=== PATIENT | female | born 1960 | race Caucasian/White ===

== ENCOUNTER 2016-05-17 12:45 | Emergency (ER) | payer MEDICAID ==
[2012-10-13 01:51] VITALS: BMI 20.4
[~2016-05-17 12:45] MED LIST: ATIVAN0.5 MG PO; BAYER CHEWABLE81 MG PO; FLEXERIL10 MG PO; IPRAT-ALBUT 0.5-3 ML NEB; NEURONTIN 300300 MG PO; NICODERM C1 PATCH .3 TD; NORCO 5/325 TAB1 TA1 PO; TRAZODONE HCL150 MG PO; TYLENOL325 MG PO; ULTRAM50 MG PO
[2016-05-17 13:44] LABS: BASOPHILS 0.1 % (0.0-2.0); EOSINOPHILS 0.2 % (0-7); HEMATOCRIT 40.8 % (36.0-48.0); IMMATURE GRANULOCYTES 0.2 % (0-5); LYMPHOCYTES 5.6 % (15-50); MCH 35.4 pg (26.0-34.0); MCHC 34.3 g/dL (31.0-37.0); MONOCYTES 5.4 % (2-11); NEUTROPHILS 88.5 % (40-80); RBC 3.96 10x6/uL (4.00-5.40); RDW 13.2 % (11.5-14.5); WBC 14.4 10x3/uL (4.8-10.8)
[2016-05-17 13:53] LABS: PLATELET COUNT 251 10x3/uL (130-400)
[2016-05-17 14:08] LABS: ALBUMIN 3.4 g/dL (3.4-5.0); ALKALINE PHOSPHATASE 114 U/L (46-116); ALT (SGPT) 22 U/L (10-68); BILIRUBIN - TOTAL 0.31 mg/dL (0.2-1.3); CALC OSMOLALITY 266 mosm/kg (275-300); CALCIUM 9.9 mg/dL (8.5-10.1); CARBON DIOXIDE 30.5 mmol/L (21.0-32.0); CHLORIDE - SERUM 94 mmol/L (98-107); CKMB 7.2 U/L (0.0-3.6); CREATINE KINASE 145 UL (21-215); GLUCOSE 133 mg/dL (74-106); HDL CHOLESTEROL 51 mg/dL (32-96); LDL CHOLESTEROL 93 mg/dL (0-100); LDL-HDL RATIO 1.8 ratio (1.5-3.5); PROTEIN - SERUM 8.4 g/dL (6.4-8.2); SODIUM 133 mmol/L (136-145); TRIGLYCERIDE 50 mg/dL (30-200); UREA NITROGEN 11 mg/dL (7-18); eGFR NON AFRICAN AMERICAN 61 mL/min (90-120)
[2016-05-17 14:11] LABS: POTASSIUM - SERUM 2.7 mmol/L (3.5-5.1); TROPONIN-I < 0.017 ng/mL (0.000-0.060)
[2016-05-17 14:24] LABS: CHOLESTEROL, TOTAL 151 mg/dL (0-200)
== END 2016-05-17 16:21 | disposition left against medical advice (07) ==
LOC: D.ER 12:45
PROVIDERS: Emergency Medicine
DX: R07.9 Chest pain, unspecified (principal); J44.9 Chronic obstructive pulmonary disease, unspecified; I45.4 Nonspecific intraventricular block

== ENCOUNTER 2016-05-18 12:36 | Emergency (ER) | payer MEDICAID ==
[2012-10-13 01:51] VITALS: BMI 20.4
== END 2016-05-18 15:08 | disposition home or self-care (01) ==
LOC: D.ER 12:36
DX: R06.02 Shortness of breath (principal)

== ENCOUNTER 2016-05-18 16:18 | Emergency (ER) | payer MEDICAID | END 2016-05-18 20:28 | disposition home or self-care (01) | LOC: D.ER 16:18 | DX: J18.9 Pneumonia, unspecified organism (principal); E87.6 Hypokalemia; J44.9 Chronic obstructive pulmonary disease, unspecified ==

== ENCOUNTER 2016-08-16 15:45 | Emergency (ER) | payer MEDICAID ==
[2012-10-13 01:51] VITALS: BMI 20.4
== END 2016-08-16 18:29 | disposition home or self-care (01) ==
LOC: D.ER 15:45
DX: I87.2 Venous insufficiency (chronic) (peripheral) (principal); M79.672 Pain in left foot; M79.671 Pain in right foot; J44.9 Chronic obstructive pulmonary disease, unspecified

== ENCOUNTER 2016-11-23 13:17 | Emergency (ER) | payer MEDICAID ==
[2012-10-13 01:51] VITALS: BMI 20.4
[2016-11-23 13:52] LABS: APPEARANCE CLOUDY (CLEAR); BILIRUBIN NEGATIVE (NEGATIVE); COLOR STRAW (YELLOW); GLUCOSE NEGATIVE (NEGATIVE); KETONE NEGATIVE (NEGATIVE); NITRITE POSITIVE (NEGATIVE); PROTEIN TRACE mg/dL (NEGATIVE); UROBILINOGEN NORMAL (NORMAL)
[2016-11-23 13:54] LABS: BACTERIA MANY /hpf (NONE SEEN); EPITHELIAL CELLS 0-5 /hpf (0-5); RED CELLS - URINE 0-5 /hpf (0-5)
[2016-11-23 13:54] LABS: BASOPHILS 0.2 % (0-2); EOSINOPHILS 1.5 % (0-7); HEMATOCRIT 37.4 % (36.0-48.0); HEMOGLOBIN 12.7 g/dL (12-16); IMMATURE GRANULOCYTES 0.1 % (0-5); LYMPHOCYTES 20.5 % (15-50); MCV 105.9 fL (80.0-100.0); MEAN PLATELET VOLUME 9.2 fL (7.4-10.4); MONOCYTES 6.7 % (2-11); PLATELET COUNT 317 10x3/uL (130-400); RBC 3.53 10x6/uL (4.00-5.40); RDW 13.7 % (11.5-14.5); WBC 8.7 10x3/uL (4.8-10.8)
[2016-11-23 14:10] LABS: ALBUMIN 3.8 g/dL (3.4-5.0); ALKALINE PHOSPHATASE 105 U/L (46-116); ALT (SGPT) 25 U/L (10-68); BILIRUBIN - TOTAL 0.37 mg/dL (0.2-1.3); CALC OSMOLALITY 279 mosm/kg (275-300); CALCIUM 9.6 mg/dL (8.5-10.1); CARBON DIOXIDE 29.1 mmol/L (21.0-32.0); CHLORIDE - SERUM 102 mmol/L (98-107); CREATININE - SERUM 0.5 mg/dL (0.6-1.3); GLUCOSE 105 mg/dL (74-106); POTASSIUM - SERUM 3.4 mmol/L (3.5-5.1); SODIUM 141 mmol/L (136-145); UREA NITROGEN 10 mg/dL (7-18); eGFR NON AFRICAN AMERICAN > 90 mL/min (90-120)
[2016-11-23 15:06] LABS: INR 0.92 (0.85-1.17); PROTIME 12.2 SECONDS (11.6-15.0)
[2016-11-23 15:15] LABS: UDS - AMPHET NEGATIVE QUAL (NEGATIVE); UDS - BARB NEGATIVE QUAL (NEGATIVE); UDS - BENZO POSITIVE QUAL (NEGATIVE); UDS - COCAINE NEGATIVE QUAL (NEGATIVE); UDS - OPIATE NEGATIVE QUAL (NEGATIVE); UDS - PCP NEGATIVE QUAL (NEGATIVE); UDS - THC NEGATIVE QUAL (NEGATIVE)
== END 2016-11-23 16:01 | disposition home or self-care (01) ==
LOC: D.ER 13:17
PROVIDERS: Emergency Medicine; Nurse Practitioner Family
DX: R10.32 Left lower quadrant pain (principal); N39.0 Urinary tract infection, site not specified; M25.50 Pain in unspecified joint; G89.4 Chronic pain syndrome; J44.9 Chronic obstructive pulmonary disease, unspecified